=== PATIENT | male | born 1965 | race Caucasian/White ===

== ENCOUNTER 2017-03-09 05:36 | Emergency (ER) | payer MEDICAID ==
[2017-03-09 05:45] VITALS: BP 128/78; PULSE 77; RESP 16; TEMP 98.8; O2SAT 94
[2017-03-09] MEDS ORDERED: IBUPROFEN 200 MG TAB PO ONE (06:06)
[2017-03-09] MEDS ORDERED: ACETAMINOPHEN 500 MG TAB PO ONE (06:06)
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
== END 2017-03-09 06:29 | disposition home or self-care (01) ==
LOC: EDUNIT#
DX: M25.561 Pain in right knee (principal); F17.200 Nicotine dependence, unspecified, uncomplicated

== ENCOUNTER 2018-08-21 00:47 | Inpatient (IN) | payer MEDICAID, OTHER ==
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
[2018-08-21] MEDS ORDERED: NS 1,000 ML IV ONE ×2 (00:53→01:17)
[2018-08-21] MEDS ORDERED: ACETAMINOPHEN 500 MG TAB PO ONE (00:54)
[2018-08-21 01:09] LABS: PLATELET COUNT 326 10^3/uL (150-400)
[2018-08-21 01:18] LABS: INR 0.93 (0.83-1.16); PROTIME(PATIENT) 12.7 SEC (12.0-15.0)
[2018-08-21] MEDS ORDERED: ALBUTEROL 3 ML DEYVIAL IH PRN (01:53)
[2018-08-21] MEDS ORDERED: ACETAMINOPHEN 325 MG TAB PO PRN (01:53)
[2018-08-21] MEDS ORDERED: ONDANSETRON DISINTEGRATING 4 MG TAB PO PRN (01:53)
[2018-08-21] MEDS: oxyCODONE IR 5 MG TAB PO PRN ×5 (02:16→21:58)
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
[2018-08-21 05:41] LABS: PLATELET COUNT 264 10^3/uL (150-400)
--- NOTE | 2018-08-21 07:12 | CPEKG ---
Test Reason : OPEN Blood Pressure : / mmHG Vent. Rate : 109 BPM Atrial Rate : 109 BPM P-R Int : 149 ms QRS Dur : 080 ms QT Int : 324 ms P-R-T Axes : 087 086 022 degrees QTc Int : 437 ms Sinus tachycardia Consider left ventricular hypertrophy Confirmed by Nam Benjamin ([id number]) on 08/21/2018 7:12:17 AM Referred By: Confirmed By:Nam Benjamin
[2018-08-21] MEDS: ENOXAPARIN 40 MG/0.4 ML SYR SC SCH (08:10)
[2018-08-21] MEDS ORDERED: AZITHROMYCIN 250 MG TAB PO ONE (09:00)
[2018-08-21] MEDS: ONDANSETRON 4 MG/2 ML VIAL IVP PRN ×2 (12:02→17:32)
--- NOTE | 2018-08-21 12:25 | HOSPPROG ---
Hospitalist Progress Note Assessment/Plan: DIAGNOSES: * acute sepsis (fever, tachycardia, elevated WBC) * acute community-acquired pneumonia * suspect COPD exacerbation as a worsening of probable chronic bronchitis * ongoing tobacco abuse * homelessness * marijuana use PLANS: * Continue current antibiotic * Will add some NSAID for pleuritic pain associated with his pneumonia * Will also add some prednisone for the pleuritic pain as well as for management of his bronchitic component of illness SUBJECTIVE: Patient complains of pleuritic pain, ongoing and worsening cough, some dyspnea unable to take a deep breath, and wheezing No appetite but no nausea or belly pain Some chills today OBJECTIVE Vitals reviewed: Temperatures better so far today, stable blood pressure and pulse so far Exam: alert oriented skin warm diaphoretic, color ok and no rash resps mildly labored with appearance of increased work of breathing lungs diffuse coarse bronchitic breath sounds with decreased air movement heart regular abd soft nondistended nontender, bowel sounds present limbs warm, no edema iv site ok I reviewed the images from his admission chest x-ray which shows right lower lung infiltrate as well as hyperexpansion of lungs Micro: Legionella and strep antigens pending Rhino virus identified on respiratory pathogen PCR Blood cultures negative to date Lab data: White count increased today to 27,000 Procalcitonin is elevated Metabolic panel is unremarkable Objective: Vital Signs Temp Pulse Resp BP Pulse Ox 37.4 C 100 16 132/79 H 90 L 08/21/18 11:19 08/21/18 11:19 08/21/18 11:19 08/21/18 11:19 08/21/18 11:19 Microbiology 08/21/18 02:10 - Final Unspecified Laboratory Results 08/21/18 04:51 08/21/18 04:51 08/20/18 08/21/18 08/22/18 06:59 06:59 06:59 Intake Total 2000 Output Total 775 Balance 1225 PT 12.7 SEC (12.0-15.0) 08/21/18 01:04 INR 0.93 (0.83-1.16) 08/21/18 01:04 ICD10 Worksheet Patient Problems: Problems Problem Status Onset Fever Acute Pneumonia Acute Sepsis Acute Tachycardia Acute Cervical spine fracture Acute Pneumothorax, acute Acute Rib fractures Acute Spinal cord injury Acute Tibia and fibula open fracture, right Acute degloving injury left thigh Acute
--- NOTE | 2018-08-21 13:07 | ASMTCMCOM ---
CM Note CM Note Notes: Met with pt, he was admitted to the hospital with pneumonia. He was at the [facility] and called EMS for sob. Pt does not have a regular bed there but does have an appt for [facility] on . Advised if he is not out of the hospital by CM will call [facility], to reschedule. DC Plan: [facility] Date Signed: 08/21/2018 01:06 PM Electronically Signed By:Roma York RN
[2018-08-21] MEDS: predniSONE 20 MG TAB PO SCH (15:12)
[2018-08-21] MEDS: KETOROLAC 15 MG/1 ML SDV IVP SCH ×2 (17:28→23:18)
[2018-08-22] MEDS: oxyCODONE IR 5 MG TAB PO PRN ×5 (04:19→23:47)
[2018-08-22] MEDS: KETOROLAC 15 MG/1 ML SDV IVP SCH ×4 (06:07→23:47)
[2018-08-22] MEDS: predniSONE 20 MG TAB PO SCH (08:43)
[2018-08-22] MEDS: ENOXAPARIN 40 MG/0.4 ML SYR SC SCH (08:43)
[2018-08-22] MEDS: AZITHROMYCIN 250 MG TAB PO SCH (08:43)
--- NOTE | 2018-08-22 09:07 | PDMN ---
Medical Necessity Medical necessity: MCG: M160 sepsis and other febrile illness: sepsis with tachycardia, fever, leukocytosis: pt presents with SOB, fever, CP, cough, dyspnea, unable to take a deep breath, wheezing, worsening X 3 weeks, CXR shows RLL infiltrate, PMHx: smoker, homelessness, anticipate > 2 MN for ongoing med nec care and tx. IVF, IV abx, IV pain, neb txs.
[2018-08-22] MEDS ORDERED: POLYETHYLENE GLYCOL 3350 17 GM PKT PO PRN (11:18)
[2018-08-22] MEDS ORDERED: MAGNESIUM HYDROXIDE 30 ML UDCUP PO PRN (11:18)
[2018-08-22] MEDS ORDERED: LACTULOSE 20 GM/30 ML UDCUP PO PRN (11:18)
[2018-08-22] MEDS ORDERED: BISACODYL 10 MG SUPP PR PRN (11:18)
--- NOTE | 2018-08-22 11:18 | HOSPPROG ---
Hospitalist Progress Note Assessment/Plan: DIAGNOSES: * acute sepsis (fever, tachycardia, elevated WBC) * acute community-acquired pneumonia, either viral or post viral with Rhinovirus found on resp PCR panel * suspect COPD exacerbation as a worsening of probable chronic bronchitis * ongoing tobacco abuse * homelessness * marijuana use PLANS: * Continue current antibiotic empirically * continue NSAID for pleuritic pain associated with his pneumonia * continue prednisone for the pleuritic pain as well as for management of his bronchitic component of illness * will add symbicort * repeat CXR in am * repeat cbc in am * follow cultures, serologies SUBJECTIVE: still quite weak, dyspneic cough a bit better can only walk very short distance no chills OBJECTIVE Vitals reviewed: afebrile, some low BPs but overall stable Exam: alert oriented skin warm diaphoretic, color ok and no rash resps mildly less labored at rest in bed lungs diffuse coarse bronchitic breath sounds with decreased air movement heart regular abd soft nondistended nontender, bowel sounds present limbs warm, no edema iv site ok Micro: Legionella and strep antigens pending Rhino virus identified on respiratory pathogen PCR Blood cultures negative to date Objective: Vital Signs Temp Pulse Resp BP Pulse Ox 36.8 C 78 17 105/68 92 08/22/18 07:43 08/22/18 07:43 08/22/18 07:43 08/22/18 07:43 08/22/18 07:43 08/21/18 08/22/18 08/23/18 06:59 06:59 06:59 Intake Total 100 200 Output Total 1375 100 Balance -1275 100 PT 12.7 SEC (12.0-15.0) 08/21/18 01:04 INR 0.93 (0.83-1.16) 08/21/18 01:04 ICD10 Worksheet Patient Problems: Problems Problem Status Onset Fever Acute Pneumonia Acute Sepsis Acute Tachycardia Acute Cervical spine fracture Acute Pneumothorax, acute Acute Rib fractures Acute Spinal cord injury Acute Tibia and fibula open fracture, right Acute degloving injury left thigh Acute
[2018-08-22] MEDS: SENNOSIDES/DOCUSATE SODIUM TAB PO SCH ×2 (12:05→19:43)
[2018-08-22] MEDS: IPRATROPIUM/ALBUTEROL 3 ML DEYVIAL IH SCH ×2 (16:18→22:23)
[2018-08-22] MEDS: guaiFENesin 600 MG TAB.ER PO SCH (19:43)
[2018-08-22] MEDS: CYCLOBENZAPRINE 10 MG TAB PO PRN (19:43)
[2018-08-23] MEDS: oxyCODONE IR 5 MG TAB PO PRN ×4 (04:47→19:56)
[2018-08-23] MEDS: CYCLOBENZAPRINE 10 MG TAB PO PRN ×3 (04:48→19:56)
[2018-08-23] MEDS: IPRATROPIUM/ALBUTEROL 3 ML DEYVIAL IH SCH ×3 (05:51→16:24)
[2018-08-23] MEDS: KETOROLAC 15 MG/1 ML SDV IVP SCH ×3 (06:02→17:52)
[2018-08-23] MEDS: predniSONE 20 MG TAB PO SCH (08:26)
[2018-08-23] MEDS: AZITHROMYCIN 250 MG TAB PO SCH (08:26)
[2018-08-23] MEDS: guaiFENesin 600 MG TAB.ER PO SCH ×2 (08:26→19:55)
[2018-08-23] MEDS: ENOXAPARIN 40 MG/0.4 ML SYR SC SCH (08:26)
[2018-08-23] MEDS: SENNOSIDES/DOCUSATE SODIUM TAB PO SCH ×2 (08:26→19:56)
--- NOTE | 2018-08-23 11:39 | HOSPPROG ---
Hospitalist Progress Note Assessment/Plan: DIAGNOSES: * acute sepsis (fever, tachycardia, elevated WBC) * acute community-acquired pneumonia, Pneumococcal, post viral with Rhinovirus found on resp PCR panel * suspect COPD exacerbation as a worsening of probable chronic bronchitis * ongoing tobacco abuse * homelessness * marijuana use PLANS: * Continue current antibiotics * continue NSAID for pleuritic pain associated with his pneumonia * continue prednisone for the pleuritic pain as well as for management of his bronchitic component of illness * continue symbicort, bronchodilators * awiating CXR today for f/u * repeat cbc in am SUBJECTIVE: finally starting to feel a bit better today still w pain w cough but no pain w inspiration less sob eating ok OBJECTIVE Vitals reviewed: afebrile, otherwise stable Exam: alert oriented skin warm diaphoretic, color ok and no rash resps mildly less labored at rest in bed lungs still diffuse coarse bronchitic breath sounds with decreased air movement heart regular abd soft nondistended nontender, bowel sounds present limbs warm, no edema iv site ok Micro: Strep pneumonia in sputum culture Rhino virus identified on respiratory pathogen PCR Blood cultures negative to date Objective: Vital Signs Temp Pulse Resp BP Pulse Ox 36.9 C 76 16 109/56 L 93 08/23/18 07:19 08/23/18 11:08 08/23/18 11:08 08/23/18 07:19 08/23/18 11:08 08/22/18 08/23/18 08/24/18 06:59 06:59 06:59 Intake Total 100 1610 300 Output Total 1375 100 Balance -1275 1510 300 PT 12.7 SEC (12.0-15.0) 08/21/18 01:04 INR 0.93 (0.83-1.16) 08/21/18 01:04 ICD10 Worksheet Patient Problems: Problems Problem Status Onset Fever Acute Pneumonia Acute Sepsis Acute Tachycardia Acute Cervical spine fracture Acute Pneumothorax, acute Acute Rib fractures Acute Spinal cord injury Acute Tibia and fibula open fracture, right Acute degloving injury left thigh Acute
--- NOTE | 2018-08-23 16:55 | ASMTCMCOM ---
CM Note [facility] Note Notes: Met with pt, [facility] was able to make an appointment with his orthopedic surgeon in [place] on September 24, specifics written in discharge instructions. Also told pt that PT did not recommend rehab, so he would likely return to [facility]. Pt disapointed, CM called [facility] and left message for Nancy Ramírez [phone], that pt would not make his appointment today d/t hospitalization. DC Plan: Half-Way Date Signed: 08/23/2018 04:54 PM Electronically Signed By:Roma York RN
[2018-08-24] MEDS: IPRATROPIUM/ALBUTEROL 3 ML DEYVIAL IH SCH ×5 (00:01→23:28)
[2018-08-24] MEDS: KETOROLAC 15 MG/1 ML SDV IVP SCH ×5 (00:52→23:21)
[2018-08-24 06:11] LABS: PLATELET COUNT 275 10^3/uL (150-400)
[2018-08-24] MEDS: oxyCODONE IR 5 MG TAB PO PRN ×4 (08:16→23:22)
[2018-08-24] MEDS: predniSONE 20 MG TAB PO SCH (08:18)
[2018-08-24] MEDS: SENNOSIDES/DOCUSATE SODIUM TAB PO SCH ×2 (08:18→21:14)
[2018-08-24] MEDS: AZITHROMYCIN 250 MG TAB PO SCH (08:18)
[2018-08-24] MEDS: guaiFENesin 600 MG TAB.ER PO SCH ×2 (08:18→21:14)
[2018-08-24] MEDS: ENOXAPARIN 40 MG/0.4 ML SYR SC SCH (08:19)
--- NOTE | 2018-08-24 13:32 | HOSPPROG ---
Hospitalist Progress Note Assessment/Plan: DIAGNOSES: * acute sepsis (fever, tachycardia, elevated WBC) * acute community-acquired pneumonia, Pneumococcal, post viral with Rhinovirus found on resp PCR panel * suspect COPD exacerbation as a worsening of probable chronic bronchitis * ongoing tobacco abuse * homelessness * marijuana use PLANS: * Continue current antibiotics * continue NSAID for pleuritic pain associated with his pneumonia * continue prednisone for the pleuritic pain as well as for management of his bronchitic component of illness * continue symbicort, bronchodilators * repeat cbc in am * Tobacco cessation counseling * Suspect he will be able to discharge home tomorrow or the next day SUBJECTIVE: Breathing actually perhaps slightly worse than yesterday but his strength is improving and he is eating better Still quite weak No chills OBJECTIVE Vitals reviewed: afebrile, otherwise stable Exam: alert oriented skin no longer diaphoretic, color ok and no rash resps less labored lungs still diffuse coarse bronchitic breath sounds with decreased air movement heart regular abd soft nondistended nontender, bowel sounds present limbs warm, no edema iv site ok Micro: Strep pneumonia in sputum culture Rhino virus identified on respiratory pathogen PCR Blood cultures negative to date Lab data: White blood cell count now down into normal range Very slight decrease in hemoglobin Imaging: I reviewed images from his Repeat chest x-ray today, there is resolution of right lower lobe infiltrate, hyperexpansion is present Objective: Vital Signs Temp Pulse Resp BP Pulse Ox 37.1 C 81 18 138/69 H 92 08/24/18 12:00 08/24/18 12:00 08/24/18 12:00 08/24/18 12:00 08/24/18 12:00 Laboratory Results 08/24/18 04:48 08/23/18 08/24/18 08/25/18 06:59 06:59 06:59 Intake Total 1610 300 Output Total 100 150 Balance 1510 150 PT 12.7 SEC (12.0-15.0) 08/21/18 01:04 INR 0.93 (0.83-1.16) 08/21/18 01:04 ICD10 Worksheet Patient Problems: Problems Problem Status Onset Fever Acute Pneumonia Acute Sepsis Acute Tachycardia Acute Cervical spine fracture Acute Pneumothorax, acute Acute Rib fractures Acute Spinal cord injury Acute Tibia and fibula open fracture, right Acute degloving injury left thigh Acute
[2018-08-25] MEDS: oxyCODONE IR 5 MG TAB PO PRN ×5 (05:18→23:03)
[2018-08-25] MEDS: KETOROLAC 15 MG/1 ML SDV IVP SCH ×4 (05:18→23:04)
[2018-08-25] MEDS: IPRATROPIUM/ALBUTEROL 3 ML DEYVIAL IH SCH ×3 (05:46→17:41)
[2018-08-25] MEDS ORDERED: predniSONE 20 MG TAB PO ONE (09:35)
[2018-08-25] MEDS ORDERED: predniSONE 20 MG TAB PO SCH (09:36)
--- NOTE | 2018-08-25 09:39 | HOSPPROG ---
Hospitalist Progress Note Assessment/Plan: * acute sepsis (fever, tachycardia, elevated WBC) * resolved * acute community-acquired pneumonia, Pneumococcal, post viral with Rhinovirus found on resp PCR panel * cont ceftriaxone * stop azithro * COPD exacerbation * increase prednisone a little * nebs * ongoing tobacco abuse * homelessness * marijuana use Subjective: feels better, still coughing Objective: Vital Signs Temp Pulse Resp BP Pulse Ox 36.9 C 74 16 137/79 H 96 08/25/18 08:00 08/25/18 08:00 08/25/18 08:00 08/25/18 08:00 08/25/18 08:00 Laboratory Results 08/24/18 04:48 08/24/18 08/25/18 08/26/18 05:59 05:59 05:59 Intake Total 300 1640 Output Total 150 Balance 150 1640 PT 12.7 SEC (12.0-15.0) 08/21/18 01:04 INR 0.93 (0.83-1.16) 08/21/18 01:04 - Physical Exam Constitutional: no apparent distress, appears nourished, not in pain Eyes: anicteric sclera, EOMI Ears, Nose, Mouth, Throat: moist mucous membranes, hearing normal Cardiovascular: regular rate and rhythym Respiratory: no respiratory distress, expiratory wheeze, rhonchi Gastrointestinal: normoactive bowel sounds, soft, non-tender abdomen, no palpable masses Skin: warm Neurologic: AAOx3 Psychiatric: interacting appropriately, not anxious, not encephalopathic, thought process linear ICD10 Worksheet Patient Problems: Problems Problem Status Onset Fever Acute Pneumonia Acute Sepsis Acute Tachycardia Acute Cervical spine fracture Acute Pneumothorax, acute Acute Rib fractures Acute Spinal cord injury Acute Tibia and fibula open fracture, right Acute degloving injury left thigh Acute
[2018-08-25] MEDS: guaiFENesin 600 MG TAB.ER PO SCH ×2 (09:49→20:20)
[2018-08-25] MEDS: ENOXAPARIN 40 MG/0.4 ML SYR SC SCH (09:49)
[2018-08-25] MEDS: SENNOSIDES/DOCUSATE SODIUM TAB PO SCH ×2 (09:50→20:24)
[2018-08-25] MEDS: predniSONE 20 MG TAB PO SCH (11:02)
[2018-08-25] MEDS: AZITHROMYCIN 250 MG TAB PO SCH (11:02)
--- NOTE | 2018-08-25 16:13 | ASMTCMCOM ---
CM Note CM Note Notes: Pt would like to go to [facility] but does not qualify, will likely return to [facility] when medically stable. [facility]. Pt also has an appointment with his orthopedic surgeon in August, details in discharge instructions note. DC Plan: Path to Home Date Signed: 08/25/2018 04:12 PM Electronically Signed By:Roma York RN
[2018-08-26] MEDS: IPRATROPIUM/ALBUTEROL 3 ML DEYVIAL IH SCH ×3 (01:52→12:20)
[2018-08-26] MEDS: KETOROLAC 15 MG/1 ML SDV IVP SCH ×2 (06:07→12:26)
[2018-08-26] MEDS: oxyCODONE IR 5 MG TAB PO PRN ×2 (06:10→10:01)
[2018-08-26] MEDS: guaiFENesin 600 MG TAB.ER PO SCH (07:33)
[2018-08-26] MEDS: SENNOSIDES/DOCUSATE SODIUM TAB PO SCH (07:33)
[2018-08-26] MEDS: ENOXAPARIN 40 MG/0.4 ML SYR SC SCH (07:34)
[2018-08-26 07:39] VITALS: BP 160/89
--- NOTE | 2018-08-26 10:24 | ASMTLACE ---
LACE Length of stay for Answers: 4-6 days current admission Comorbidities - select Answers: Chronic pulmonary disease all that apply Other Notes: Homeless # of Emergency department Answers: 1-2 visits in the last 6 months Social determinants Answers: Homelessness (street, [facility]) Lack of community resources and/or lack of social support (no pcp, lives alone, transportation, nydia d) Score: 15 Date Signed: 08/26/2018 10:24 AM Electronically Signed By:Sally Stone LCSW
--- NOTE | 2018-08-26 11:38 | ASDISCHSUM ---
Discharge Information Plan Status:Home with No Needs Medically Cleared to Leave:08/25/2018 Discharge Date:08/25/2018 CM D/C Disposition:Home, Routine, Self-Care ADT D/C Disposition:Home, Routine, Self-Care Projected Discharge Date:08/26/2018 03:00 PM Transportation at D/C: Discharge Delay Reason: Follow-Up Date:08/26/2018 03:00 PM Discharge Slot:2 - 12:01 pm - 18:00 pm Final Diagnosis:Acute sepsis, PNA, COPD Exac Placement Information Patient Contact Information Contact Name:DANYA Relationship:Mother Address: Work Phone: City: [facility] Phone: State/[place] Code: Email: Financial Information Financial Class:Medicare Advantage Plans Primary Plan Desc:[facility] ADVANTAGE PLANS Primary Plan Number:[id number] Secondary Plan Desc: Secondary Plan Number: Assessment Information LACE LACE Length of stay for Answers: 4-6 days current admission Comorbidities - select Answers: Chronic pulmonary disease all that apply Other Notes: Homeless # of Emergency department Answers: 1-2 visits in the last 6 months Social determinants Answers: Homelessness (street, [facility]) Lack of community resources and/or lack of social support (no pcp, lives alone, transportation, nydia d) Score: 15 Date Signed: 08/26/2018 10:24 AM Electronically Signed By:Sally Stone LCSW [facility] CM Progress Note CM Note CM Note Notes: Met with pt, he was admitted to the hospital with pneumonia. He was at the [facility] and called EMS for sob. Pt does not have a regular bed there but does have an appt for [facility] on . Advised if he is not out of the hospital by [facility] will call [facility], to reschedule. DC Plan: Detention Date Signed: 08/21/2018 01:06 PM Electronically Signed By:Roma York RN [facility] Progress Note [facility] CM Note Notes: Met with pt, [facility] was able to make an appointment with his orthopedic surgeon in [place] on September 24, specifics written in discharge instructions. Also told pt that PT did not recommend rehab, so he would likely return to [facility]. Pt disapointed, [facility] called [facility] and left message for Nancy Darrell [phone], that pt would not make his appointment today d/t hospitalization. DC Plan: Detention Date Signed: 08/23/2018 04:54 PM Electronically Signed By:Roma York RN [facility]INA Progress Note [facility] CM Note Notes: Pt would like to go to [facility] but does not qualify, will likely return to [facility] when medically stable. [facility]. Pt also has an appointment with his orthopedic surgeon in August, details in discharge instructions note. DC Plan: Path to Home Date Signed: 08/25/2018 04:12 PM Electronically Signed By:Roma York RN Case Management Discharge Plan Note Case Management Discharge Discharge Order Complete? Answers: Yes Patient to Obtain Answers: Independently Medications Transportation Arranged Answers: [facility] [employer] will Pick (Date 08/26/2018 03:30 PM & Time) Discharge Comments Notes: Patient has a Detention bed for tonight and going to p/u his medications at [facility]. Date Signed: 08/26/2018 11:37 AM Electronically Signed By:Sally Stone LCSW Intervention Information
--- NOTE | 2018-08-26 11:38 | ASMTDCNOTE ---
Case Management Discharge Discharge Order Complete? Answers: Yes Patient to Obtain Answers: Independently Medications Transportation Arranged Answers: [employer] Transport will Pick (Date 08/26/2018 03:30 PM & Time) Discharge Comments Notes: Patient has a Long Term bed for tonight and going to p/u his medications at [facility]. Date Signed: 08/26/2018 11:37 AM Electronically Signed By:Sally Stone LCSW
--- NOTE | 2018-08-26 11:39 | GDS ---
DISCHARGE DIAGNOSES: 1. Community-acquired Streptococcus pneumoniae pneumonia. 2. Post viral syndrome with rhinovirus. 3. Chronic obstructive pulmonary disease exacerbation. 4. Homelessness. HISTORY: This is a 53-year-old male who presented with progressively worsening cough and purulent sp utum for 3 weeks. HOSPITAL COURSE: Patient was admitted and treated for community-acquired pneumonia. Streptococcus p neumoniae was found in sputum. Antibiotics were tapered to ceftriaxone. He was also placed on predn isone. He improved. His oxygen saturation is normal. He is eating and ambulating. He is homeless and [facility] He will be discharged on several more days of Omnicef, as well as prednisone taper and albuterol. Greater than 30 minutes was spent on discharge. /[id number]/MODL
--- NOTE | 2018-08-30 09:37 | PQFORM ---
PHYSICIAN QUERY FORM Needs Your Response This query form is being sent to you to assure this patient record is coded properly. Please respond to the question below: CENTER MACHINE OPERATOR QUESTION: Dear Dr. Dunlap, In reviewing this patients medical record, it is noted that the patient held the diagnosis of 'Sepsis.' Patient presented to ER with Fever, Tachycardia, and was hypoxic along with an elevated WBC of 21.07. Noted in the H&P patient was diagnosed with "Sepsis 2/2 CAP." In the Medical Necessity note patient was diagnosed with "sepsis and other febrile illness." Also noted in the Hospitalist Progress notes dated 08/21-08/25 patient held the diagnosis of "Acute Sepsis (fever, tachycardia, elevated WBC)." After study, should the diagnosis of "Sepsis" be included in the Discharge Summary? __x___ Yes No Clinically Undetermined Other (please specify) Thank you GUILLERMO Martinez HIM/Coding Dept. [phone] INSTRUCTIONS FOR RESPONSE: Answer question by clicking on the "Edit Document" button. Move cursor to area below the stars. When complete, hit "Save." Click on the "Sign" button, then click "Sign" again. Type in your PIN and hit "Enter." MTDD
== END 2018-08-26 13:14 | disposition home or self-care (01) | DRG 871 ==
LOC: EDUNIT# → F3E 02:44 → OBSVTOIN 16:35
PROVIDERS: ADMIT Student in an Organized Health Care Education/Training Program; ATTEND Student in an Organized Health Care Education/Training Program
DX: A40.3 Sepsis due to Streptococcus pneumoniae (principal); J13 Pneumonia due to Streptococcus pneumoniae; J44.1 Chronic obstructive pulmonary disease with (acute) exacerbation; E86.9 Volume depletion, unspecified; B34.8 Other viral infections of unspecified site; Z59.0 Homelessness; Z72.0 Tobacco use; F12.90 Cannabis use, unspecified, uncomplicated
CPT/HCPCS: 80305; 84484-PO; 87449-90; 96365; 97116-GP; 97161-GP; 97166-GO; 97535-GO; G8978-GP-CI; G8979-GP-CI; G8987-GO-CI; G8988-GO-CI; G8989-GO-CI; J0696; J1650; J1885; J1956; J2405; J7512